=== PATIENT | male | born 1960 | race Caucasian/White ===

== ENCOUNTER 2018-11-27 08:01 | Outpatient (CLI) | payer OTHER | END 2018-11-27 23:59 | disposition home or self-care (01) | LOC: CFH 08:01 | PROVIDERS: ATTEND Internal Medicine Cardiovascular Disease | DX: I35.8 Other nonrheumatic aortic valve disorders (principal); I10 Essential (primary) hypertension | CPT/HCPCS: 93306 ==

== ENCOUNTER → 2019-01-29 | Outpatient (CLI) | payer OTHER | END | disposition home or self-care (01) | LOC: CVU 06:56 | PROVIDERS: ATTEND Internal Medicine Cardiovascular Disease | DX: E78.5 Hyperlipidemia, unspecified (principal); I10 Essential (primary) hypertension | CPT/HCPCS: 93880 ==

== ENCOUNTER 2019-04-27 12:46 | Emergency (ER) | payer BC, OTHER ==
[~2019-04-27] VITALS: Ht 170.2 cm; Wt 83.9 kg
[2019-04-27 16:23] VITALS: BP 129/80
== END 2019-04-27 17:17 | disposition home or self-care (01) ==
LOC: ED 16:12
DX: I82.412 Acute embolism and thrombosis of left femoral vein (principal); K20.9 Esophagitis, unspecified
CPT/HCPCS: 36415; 80053; 85025; 99284

== ENCOUNTER 2019-06-21 06:00 | Day surgery (SDC) | payer BC ==
[~2019-06-21] VITALS: Ht 170.2 cm; Wt 84.0 kg
[~2019-06-21 06:00] MED LIST: FLOVENT; PANT40TA3 PO; XARELTO PO
[2019-06-21] MEDS ORDERED: LACTATED RINGERS 1,000 ML IV SCH (06:33)
[2019-06-21 06:38] VITALS: BP 143/80
[2019-06-21] MEDS ORDERED: BUPIVACAINE/EPI 0.5% 1:200K ONE (07:04)
[2019-06-21] MEDS ORDERED: HEPARIN 1,000 UNITS/ML, 10ML ONE (07:04)
[2019-06-21] MEDS ORDERED: AMOX1TAB61 PO (07:09)
[2019-06-21] MEDS ORDERED: MIDAZOLAM 1 MG/ML, 2ML ONE (07:22)
[2019-06-21] MEDS ORDERED: FENTANYL PF 250 MCG/5ML ONE (07:23)
[2019-06-21 07:45] LABS: INTERNATIONAL NORMALIZED RATIO 1.21 (0.93-1.1); PROTHROMBIN TIME 12.6 Seconds (9.6-11.5)
[2019-06-21] MEDS ORDERED: BUPIVACAINE/PF-EPI 0.5% 1:200K INFIL ONE (08:01)
[2019-06-21] MEDS ORDERED: HEPARIN 1,000 UNITS/ML, 10ML IV ONE (08:01)
[2019-06-21] MEDS ORDERED: PROMETHAZINE 25 MG/ML, 1ML IV PRN (08:30)
[2019-06-21] MEDS ORDERED: ALBUTEROL SULFATE 2.5 MG/3 ML NPPB PRN (08:30)
[2019-06-21] MEDS ORDERED: ACETAMINOPHEN 325 MG TABLET PO PRN (08:30)
[2019-06-21] MEDS ORDERED: KETOROLAC 30 MG/1 ML IV PRN (08:30)
[2019-06-21] MEDS ORDERED: OXYcodone 5 MG/5 ML ORAL.SOL UDC PO PRN (08:30)
[2019-06-21] MEDS ORDERED: MEPERIDINE/PF 25MG/0.5ML IVPush PRN (08:30)
[2019-06-21] MEDS ORDERED: LABETALOL 5MG/ML, 20ML IV PRN (08:30)
[2019-06-21] MEDS ORDERED: HYDROmorphone 2 MG/ML, 1ML IVPush PRN (08:30)
[2019-06-21] MEDS ORDERED: DIAZEPAM 5 MG/ML, 2ML IVPush PRN (08:30)
[2019-06-21] MEDS ORDERED: hydrALAzine 20 MG/ML, 1ML IV PRN (08:30)
[2019-06-21] MEDS ORDERED: CEFAZOLIN 1,000 MG ONE (08:41)
[2019-06-21] MEDS ORDERED: DEXAMETHASONE 4 MG/ML, 1ML ONE (08:41)
[2019-06-21] MEDS ORDERED: ROCURONIUM 10MG/ML,5ML ONE (08:41)
[2019-06-21] MEDS ORDERED: ONDANSETRON 2MG/ML, 2ML ONE (08:41)
[2019-06-21] MEDS ORDERED: PROPOFOL 10 MG/ML, 20ML ONE (08:41)
[2019-06-21] MEDS ORDERED: SUCCINYLCHOLINE 20 MG/ML, 10ML ONE (08:41)
[2019-06-21] MEDS ORDERED: GLYCOPYRROLATE 0.2MG/1ML, 5ML ONE (08:41)
[2019-06-21] MEDS ORDERED: NEOSTIGMINE 1 MG/ML, 10ML ONE (08:41)
[2019-06-21] MEDS: FENTANYL PF 100 MCG/2ML IV PRN ×4 (09:10→09:28)
[2019-06-21] MEDS ORDERED: FENTANYL PF 100 MCG/2ML ONE (09:11)
[2019-06-21] MEDS ORDERED: KETOROLAC 30 MG/1 ML ONE (09:16)
[2019-06-21] MEDS ORDERED: OXYcodone 5 MG/5 ML ORAL.SOL UDC ONE (09:17)
[2019-06-21] MEDS ORDERED: KETOROLAC 30 MG/1 ML IVPush ONE (09:30)
== END 2019-06-21 12:10 | disposition home or self-care (01) ==
LOC: OUT 06:00
PROVIDERS: ATTEND Surgery
DX: C16.0 Malignant neoplasm of cardia (principal); K22.70 Barrett's esophagus without dysplasia; Z72.89 Other problems related to lifestyle; Z79.01 Long term (current) use of anticoagulants; Z79.1 Long term (current) use of non-steroidal anti-inflammatories (NSAID); Z79.899 Other long term (current) drug therapy; Z86.711 Personal history of pulmonary embolism; Z86.718 Personal history of other venous thrombosis and embolism; Z88.8 Allergy status to other drugs, medicaments and biological substances; Z91.018 Allergy to other foods; Z98.890 Other specified postprocedural states; Z80.0 Family history of malignant neoplasm of digestive organs; Z82.49 Family history of ischemic heart disease and other diseases of the circulatory system
CPT/HCPCS: 36415; 36561; 44186; 71045; 77001; 85610; B4087; C1788; J0690; J1100; J1644; J1885; J2250; J2405; J2704; J2710; J3010; J0330

== ENCOUNTER 2019-07-24 09:20 | Outpatient (CLI) | payer BC ==
[~2019-07-24 09:20] MED LIST changes: +AMOX1TAB61 PO
== END 2019-07-24 23:59 | disposition home or self-care (01) ==
LOC: CFH 09:20
PROVIDERS: ATTEND Specialist
DX: C15.5 Malignant neoplasm of lower third of esophagus (principal); D50.9 Iron deficiency anemia, unspecified
CPT/HCPCS: 76700

== ENCOUNTER 2019-08-24 08:39 | Outpatient (CLI) | payer BC | END 2019-08-24 23:59 | disposition home or self-care (01) | LOC: ROC 08:39 | PROVIDERS: ATTEND Radiology Radiation Oncology | DX: C15.5 Malignant neoplasm of lower third of esophagus (principal) | CPT/HCPCS: 99213; G0463 ==

== ENCOUNTER → 2019-09-20 | Outpatient (CLI) | payer BC | END | disposition home or self-care (01) | LOC: PETCFH 08:38 | PROVIDERS: ATTEND Surgery | DX: C16.0 Malignant neoplasm of cardia (principal) | CPT/HCPCS: 78815; A9552 ==

== ENCOUNTER 2019-11-09 08:43 | Outpatient (CLI) | payer BC | END 2019-11-09 23:59 | disposition home or self-care (01) | LOC: ROC 08:43 | PROVIDERS: ATTEND Radiology Radiation Oncology | DX: C15.5 Malignant neoplasm of lower third of esophagus (principal) | CPT/HCPCS: 99212; G0463 ==

== ENCOUNTER → 2020-02-22 | Outpatient (CLI) | payer BC ==
[~2020-02-22] MED LIST changes: +LIDOCAINE 1%, 10ML ONE
== END | disposition home or self-care (01) ==
LOC: RAD 14:09
PROVIDERS: ATTEND Specialist
DX: J90 Pleural effusion, not elsewhere classified (principal); Z85.01 Personal history of malignant neoplasm of esophagus
CPT/HCPCS: 32555; J3490

== ENCOUNTER 2020-03-01 07:57 | Outpatient (CLI) | payer BC ==
[~2020-03-01 07:57] MED LIST changes: -LIDOCAINE 1%, 10ML ONE
[2020-03-01] MEDS ORDERED: LIDOCAINE 1%, 20ML ONE (08:53)
== END 2020-03-01 23:59 | disposition home or self-care (01) ==
LOC: RAD 07:57
PROVIDERS: ATTEND Specialist
DX: J90 Pleural effusion, not elsewhere classified (principal); C15.5 Malignant neoplasm of lower third of esophagus; Z79.2 Long term (current) use of antibiotics; Z88.8 Allergy status to other drugs, medicaments and biological substances; Z91.048 Other nonmedicinal substance allergy status; Z72.89 Other problems related to lifestyle; Z86.718 Personal history of other venous thrombosis and embolism
CPT/HCPCS: 32555; J3490

== ENCOUNTER → 2020-03-18 | Outpatient (CLI) | payer BC ==
[~2020-03-18] MED LIST changes: +LIDOCAINE 1%, 10ML ONE; +OMEP-110 PO; +POLY17PO5 PO; +RIVA10TA2 PO
== END | disposition home or self-care (01) ==
LOC: RAD 16:07
PROVIDERS: ATTEND Specialist
DX: J90 Pleural effusion, not elsewhere classified (principal); C15.5 Malignant neoplasm of lower third of esophagus; R06.02 Shortness of breath
CPT/HCPCS: 32555; J3490

== ENCOUNTER 2020-03-21 12:52 | Outpatient (CLI) | payer BC ==
[~2020-03-21 12:52] MED LIST changes: -LIDOCAINE 1%, 10ML ONE; -OMEP-110 PO; -POLY17PO5 PO; -RIVA10TA2 PO
[2020-03-21] MEDS ORDERED: POLY17PO5 PO (14:51)
[2020-03-21] MEDS ORDERED: RIVA10TA2 PO (14:51)
[2020-03-21] MEDS ORDERED: OMEP-110 PO (14:51)
[2020-03-21] MEDS ORDERED: OMNIPAQUE 350 MG/ML, 100ML BOTTLE ONE (15:01)
== END 2020-03-21 23:59 | disposition home or self-care (01) ==
LOC: CFH 12:52
PROVIDERS: ATTEND Specialist
DX: C15.5 Malignant neoplasm of lower third of esophagus (principal); R91.8 Other nonspecific abnormal finding of lung field; J90 Pleural effusion, not elsewhere classified
CPT/HCPCS: 71275; Q9967

== ENCOUNTER 2020-03-21 14:12 | Emergency (ER) | payer BC ==
[~2020-03-21] VITALS: Ht 170.2 cm; Wt 60.2 kg
[2020-03-21] MEDS ORDERED: OMEP-110 PO (14:51)
[2020-03-21] MEDS ORDERED: POLY17PO5 PO (14:51)
[2020-03-21] MEDS ORDERED: RIVA10TA2 PO (14:51)
[2020-03-21] MEDS ORDERED: SODIUM CHLORIDE FLUSH 10ML SYR IVF ONE (15:30)
[2020-03-21] MEDS ORDERED: DOXYCYCLINE 100MG TABLET PO ONE (16:00)
[2020-03-21] MEDS ORDERED: CEFTRIAXONE PMX 1GM/50ML 50 ML IVPB ONE (16:00)
[2020-03-21 16:01] LABS: BASOPHILS # (AUTO) 0.01 x10^3/uL (0-0.1); BASOPHILS % (AUTO) 0 % (0-1); EOSINOPHILS # (AUTO) 0.01 x10^3/uL (0-0.4); EOSINOPHILS % (AUTO) 0 % (1-7); LYMPHOCYTES # (AUTO) 0.54 x10^3/uL (1-3.4); LYMPHOCYTES % (AUTO) 17 % (22-44); MD NO; MEAN CORPUSCULAR HEMOGLOBIN 32.1 pg (27.5-34.5); MEAN CORPUSCULAR HGB CONC 32.4 g/dL (33.2-36.2); MEAN CORPUSCULAR VOLUME 98.9 fL (81-97); MEAN PLATELET VOLUME 6.2 fL (7.4-10.4); MONOCYTES # (AUTO) 0.09 x10^3/uL (0.2-0.8); MONOCYTES % (AUTO) 3 % (2-9); NEUTROPHILS # (AUTO) 2.62 x10^3/uL (1.8-6.8); NEUTROPHILS % (AUTO) 80 % (42-75); PLATELET COUNT 211 x10^3/uL (130-400); RED BLOOD COUNT 3.61 x10^6/uL (4.38-5.82); RED CELL DISTRIBUTION WIDTH 15.6 % (9.4-14.8)
[2020-03-21 16:19] LABS: ALANINE AMINOTRANSFERASE 24 U/L (12-78); ALBUMIN 2.5 g/dL (3.4-5.0); ANION GAP 7 mmol/L (5-15); CALCIUM 8.1 mg/dL (8.5-10.1); CHLORIDE 108 mmol/L (98-107); CREATININE 0.68 mg/dL (0.7-1.3)
[2020-03-21 16:21] LABS: ALKALINE PHOSPHATASE 150 U/L (45-117); BILIRUBIN,TOTAL 1.4 mg/dL (0.2-1.0); TOTAL PROTEIN 6.8 g/dL (6.4-8.2)
[2020-03-21 16:30] VITALS: BP 132/51
--- NOTE | 2020-03-21 16:30 | NUR ---
PT REQUESTING NOT TO STAY IN HOSPITAL HE IS FEARFUL OF CATCHING COVID, PER MD WILL CHECK LABS AND ENSURE PT FOR SAFE DC. PT TO GO HOME ON PO ABX, SWITCHED TO LIQUID FORM.
[2020-03-21 16:56] LABS: D-DIMER (DIC) 29.64 ug/mlFEU (0.00-0.52); PROTIME 16.4 Seconds (9.6-11.5)
[2020-03-21 16:57] LABS: C-REACTIVE PROTEIN, QUANT 2.4 mg/dL (0.02-0.49)
== END 2020-03-21 17:15 | disposition home or self-care (01) ==
LOC: ED 17:00
DX: J15.9 Unspecified bacterial pneumonia (principal); Z20.828 Contact with and (suspected) exposure to other viral communicable diseases; R06.00 Dyspnea, unspecified; R94.31 Abnormal electrocardiogram [ECG] [EKG]; R63.4 Abnormal weight loss; Z85.01 Personal history of malignant neoplasm of esophagus
CPT/HCPCS: 36415; 80053; 82728; 83605; 83615; 84145; 85025; 85049; 85379; 85384; 85610; 85730; 86140; 87040; 87635; 93005; 99284

== ENCOUNTER 2020-04-08 09:17 | Outpatient (CLI) | payer BC ==
[~2020-04-08 09:17] MED LIST changes: +OMEP-110 PO; +POLY17PO5 PO; +RIVA10TA2 PO
[2020-04-08] MEDS ORDERED: OMNIPAQUE 350 MG/ML, 100ML BOTTLE ONE (10:34)
== END 2020-04-08 23:59 | disposition home or self-care (01) ==
LOC: RAD 09:17
PROVIDERS: ATTEND Specialist
DX: C78.6 Secondary malignant neoplasm of retroperitoneum and peritoneum (principal); C15.5 Malignant neoplasm of lower third of esophagus; J92.9 Pleural plaque without asbestos; T79.7XXA Traumatic subcutaneous emphysema, initial encounter; J93.9 Pneumothorax, unspecified; K83.8 Other specified diseases of biliary tract; R59.1 Generalized enlarged lymph nodes; R18.8 Other ascites; R59.0 Localized enlarged lymph nodes; X58.XXXA Exposure to other specified factors, initial encounter; Y93.89 Activity, other specified; Y92.89 Other specified places as the place of occurrence of the external cause; Y99.8 Other external cause status
CPT/HCPCS: 71260; 74177; Q9967